=== PATIENT | male | born 1990 | race Caucasian/White ===

== ENCOUNTER 2017-09-09 16:55 | Emergency (ER) | payer MEDICAID, OTHER ==
[2017-09-09 17:09] VITALS: RESP 18; TEMP 99.1
[2017-09-09 18:03] VITALS: BP 121/69; PULSE 94; O2SAT 99
== END 2017-09-09 18:00 | disposition home or self-care (01) | DRG 153 ==
LOC: ED 16:55
DX: J02.9 Acute pharyngitis, unspecified (principal)
CPT/HCPCS: 36415; 86308; 87430; 99283